=== PATIENT | female | born 1985 | race Two or more races ===

== ENCOUNTER 2020-01-02 12:25 | Emergency (ER) | payer OTHER ==
[~2020-01-02] VITALS: Ht 157.5 cm; Wt 56.7 kg
--- NOTE | 2020-01-02 12:33 | NUR ---
ED Nurse Note: PT walked in to ED for C/O right knee pain from S/P working out on Monday. Pt states that she has been supporting her gait with her left leg.
--- NOTE | 2020-01-02 12:52 | NUR ---
ED Nurse Note: x ray taken at bedside.
--- NOTE | 2020-01-02 13:32 | Emergency Room Report ---
History of Present Illness General Chief Complaint: Lower Extremity Injury Source: Patient Present Illness HPI 34-year-old female presents to the emergency department complaining of 6 out of 10 severity pain acute onset status post working out on Monday evening. Patient reports she is unable to bear weight as she has excruciating pain anteriorly on the right knee. Patient denies appreciable trauma or fall. She reports her symptoms are progressive the next few days. She states she has been attempting to rest her leg at home with no relief. She took Advil one time which provided minimal relief. Patient denies previous injury to this extremity she denies bruising, swelling, warmth, erythema or open wounds. Patient reports pain is exacerbated upon walking as well. Patient denies feeling of instability of the joint. She denies fevers or chills. Allergies: Coded Allergies: No Known Allergies (Unverified , 01/02/20) Patient History Past Medical History: see triage record Past Surgical History: none Pertinent Family History: none Last Menstrual Period: 12/28/2019 Now: No Reviewed Nursing Documentation: PMH: Agreed; PSxH: Agreed Nursing Documentation-PMH Past Medical History: No Stated History Review of Systems All Other Systems: negative except mentioned in HPI Physical Exam Vital Signs Date Time Temp Pulse Resp B/P (MAP) Pulse Ox O2 Delivery O2 Flow Rate FiO2 01/02/20 12:27 98.2 104 16 111/60 (77) 97 Room Air Sp02 EP Interpretation: reviewed, normal General Appearance: no apparent distress, alert, GCS 15, non-toxic Head: normocephalic, atraumatic Eyes: bilateral eye normal inspection, bilateral eye PERRL ENT: hearing grossly normal, normal voice Neck: full range of motion Respiratory: lungs clear, normal breath sounds, speaking full sentences Cardiovascular #1: regular rate, rhythm Cardiovascular #2: 2+ dorsalis pedis (R) - post. tib Musculoskeletal: back normal, normal range of motion, gait/station normal, tender - TTP to The anterior Right knee , no obvious swelling, echymosis, or deformity noted. there is no increased laxity to a valgus or varus stress. anterior and posterior drawer sign is negative. Neurologic: alert, motor strength/tone normal, oriented x3, sensory intact, responsive, speech normal Psychiatric: judgement/insight normal Skin: normal color, normal inspection Medical Decision Making PA Attestation Dr. Bravo is my supervising Physician whom patient management has been discussed with. Diagnostic Impression: Primary Impression: Right knee sprain Qualified Codes: S83.91XA - Sprain of unspecified site of right knee, initial encounter ER Course 34-year-old female presents to the emergency department complaining of 6 out of 10 severity pain acute onset status post working out on Monday evening. Patient reports she is unable to bear weight as she has excruciating pain anteriorly on the right knee. Patient denies appreciable trauma or fall. She reports her symptoms are progressive the next few days. She states she has been attempting to rest her leg at home with no relief. She took Advil one time which provided minimal relief. Patient denies previous injury to this extremity she denies bruising, swelling, warmth, erythema or open wounds. Patient reports pain is exacerbated upon walking as well. Patient denies feeling of instability of the joint. She denies fevers or chills. Ddx considered but are not limited to Fracture, dislocation, contusion, Septic Joint, Gout, meniscal injury, Sprain/Strain/Spasm Vital signs: are WNL, pt. is afebrile H&PE are most consistent with knee strain/ overuse. ORDERS: X-ray Right knee complete 3 view - negative for fx, Dislocation, or significant soft tissue injury ED INTERVENTIONS: --Patient is provided with crutches and instructed on their use DISCHARGE: At this time pt. is stable for d/c to home. Will provide printed patient care instructions, and any necessary prescriptions. Care plan and follow up instructions have been discussed with the patient prior to discharge. Other X-Ray Diagnostic Results Other X-Ray Diagnostic Results : X-Ray ordered: Right Knee # of Views/Limited Vs Complete: 3 View Indication: Pain EP Interpretation: Yes PA Xray: Interpretation reviewed, by supervising MD, and agrees with findings. Interpretation: no dislocation, no soft tissue swelling, no fractures Impression: No acute disease Electronically Signed by: Sosa De Guzman PA-C Last Vital Signs Date Time Temp Pulse Resp B/P (MAP) Pulse Ox O2 Delivery O2 Flow Rate FiO2 01/02/20 12:27 98.2 104 16 111/60 (77) 97 Room Air Disposition: HOME, SELF-CARE Condition: Stable Scripts Ibuprofen* (MOTRIN*) 600 Mg Tablet 600 MG ORAL THREE TIMES A DAY, #30 TAB 0 Refills Prov: Sosa De Guzman 01/02/20 Referrals: [facility],REFERRING (PCP) Departure Forms: Return to Work Return to Work Date: Jan 06, 2020 Work Restrictions: No Heavy Lifting Other Restrictions: light duty. May return Sooner if Symptoms have resolved. Return to Full Activity: Jan 09, 2020 Patient Instructions: Knee Sprain Additional Instructions: Take medications as directed. Follow up with an [facility] [employer] IN[employer]CTOR in 3-5 days, even if your symptoms have resolved. If symptoms persist MRI may be required at the discretion of your PCP or Ortho Specialist. --Please review list of primary care clinics, if you do not already have a primary care provider who can give you an Orthopedic Referral. Return sooner to ED if new symptoms occur, or current symptoms become worse. - Please note that this Emergency Department Report was dictated using [employer]ob[employer] sawyer technology software, occasionally this can lead to erroneous entry secondary to interpretation by the dictation equipment. Sosa De Guzman Jan 02, 2020 13:32
[2020-01-02] MEDS ORDERED: IBUPROFEN600 MG ORAL (13:33)
--- NOTE | 2020-01-02 13:33 | Diagnostic Imaging Report ---
Indication: Right knee Pain 3 views of the right knee were obtained. Findings: No acute fracture, malalignment, or joint effusion are identified. Impression: Negative for acute findings.
[2020-01-02 13:43] VITALS: BP 116/62
--- NOTE | 2020-01-02 13:43 | NUR ---
ER DISCHARGE NOTE: Patient is cleared to be discharged per ERMD, pt is aox4, on room air, with stable vital signs as documented. pt was given dc and prescription instructions and was able to verbalize understanding. pt id band removed. pt is able to ambulate with steady gait with crutches. Pt educated on how to use crutches. pt took all belongings.
== END 2020-01-02 13:43 | disposition home or self-care (01) ==
LOC: EMR 13:01
DX: S83.91XA Sprain of unspecified site of right knee, initial encounter (principal); X50.9XXA Other and unspecified overexertion or strenuous movements or postures, initial encounter; Y92.9 Unspecified place or not applicable
CPT/HCPCS: 73562; Z7502; 99283

== ENCOUNTER 2020-01-16 13:26 | Emergency (ER) | payer OTHER ==
[~2020-01-16] VITALS: Ht 157.5 cm; Wt 59.0 kg
[~2020-01-16 13:26] MED LIST: IBUPROFEN600 MG ORAL
[2020-01-16 13:28] VITALS: BP 116/79
--- NOTE | 2020-01-16 13:36 | Emergency Room Report ---
History of Present Illness General Chief Complaint: Flu Like Symptoms Source: Patient Present Illness HPI 34-year-old female presents to the emergency department complaining of persistent cough with some chest congestion that is worse at night-time x2 weeks. She denies pain. Patient reports she was diagnosed by her doctor with bronchitis and was told to take Mucinex. Patient was also given albuterol inhaler. Patient states that her symptoms have not improved. Patient denies progression of her symptoms. She denies fevers or chills. She denies sore throat. Patient reports at initial onset she did have some rhinorrhea and nasal congestion but that has resolved at this time. She denies dyspnea, shortness of breath, bluish colored lips, altered mental status, increase in fatigue or inability to be aroused. Denies recent travel. Denies contact with persons who have tested positive for or are under investigation/quarantine for COVID-19. She denies hx of GERD. She denies pain at this time. COVID-19 risk:Contact w/high r: No COVID-19 risk:Travel to affect: No Has patient experienced suazo: No Coronavirus symptoms experienc: Cough Allergies: Coded Allergies: No Known Allergies (Unverified , 01/02/20) Patient History Past Medical History: see triage record Past Surgical History: none Pertinent Family History: none Now: No Immunizations: UTD Reviewed Nursing Documentation: PMH: Agreed; PSxH: Agreed Nursing Documentation-PMH Past Medical History: No Stated History Review of Systems All Other Systems: negative except mentioned in HPI Physical Exam Vital Signs Date Time Temp Pulse Resp B/P (MAP) Pulse Ox O2 Delivery O2 Flow Rate FiO2 01/16/20 13:24 98.8 88 17 116/79 (91) 96 Room Air Sp02 EP Interpretation: reviewed, normal General Appearance: no apparent distress, alert, GCS 15, non-toxic Head: normocephalic, atraumatic Eyes: bilateral eye normal inspection, bilateral eye PERRL ENT: hearing grossly normal, normal pharynx, normal voice, TMs + canals normal , uvula midline Neck: full range of motion Respiratory: chest non-tender, lungs clear, normal breath sounds, no respiratory distress, no accessory muscle use, no wheezing, speaking full sentences Cardiovascular #1: regular rate, rhythm Musculoskeletal: normal range of motion, gait/station normal, non-tender Neurologic: alert, motor strength/tone normal, oriented x3, sensory intact, responsive, speech normal Psychiatric: judgement/insight normal Skin: normal color, normal inspection Lymphatic: no adenopathy Medical Decision Making PA Attestation Dr. Pedersen Is my supervising Physician whom patient management has been discussed with. Diagnostic Impression: Primary Impression: Persistent cough Additional Impression: Upper respiratory infection, viral ER Course 34-year-old female presents to the emergency department complaining of persistent cough with some chest congestion that is worse at nighttime x2 weeks. Patient reports she was diagnosed by her doctor with bronchitis and was told to take Mucinex. Patient was also given albuterol inhaler. Patient states that her symptoms have not improved. Patient denies progression of her symptoms. She denies fevers or chills. She denies sore throat. Patient reports at initial onset she did have some rhinorrhea and nasal congestion but that has resolved at this time. She denies dyspnea, shortness of breath, bluish colored lips, altered mental status, increase in fatigue or inability to be aroused. Denies recent travel. Denies contact with persons who have tested positive for or are under investigation/quarantine for COVID-19. She denies hx of GERD. She denies pain at this time. Ddx considered but are not limited to URI, pneumonia, PE, strep pharyngitis, meningitis, COVID-19 Vital signs: Pt.is afebrile VS are WNL H&PE are most consistent with bronchitis- mild, not currently displaying wheezing or SOB, intermittent dry cough is present. The patient is nontoxic in appearance in no acute distress not exhibiting signs and symptoms indicating respiratory distress. ORDERS: none required at this time, the diagnosis is clinical ED INTERVENTIONS: None required at this time. D/w pt. and the importance of minimum 2 week self-quarantine due to exhibiting s/sx that are c/w COVID-19 during a local ongoing outbreak. DISCHARGE: At this time pt. is stable for d/c to home. Will provide printed patient care instructions, and any necessary prescriptions. Care plan and follow up instructions have been discussed with the patient prior to discharge. Last Vital Signs Date Time Temp Pulse Resp B/P (MAP) Pulse Ox O2 Delivery O2 Flow Rate FiO2 01/16/20 13:28 98.8 88 17 116/79 96 Room Air Disposition: HOME, SELF-CARE Condition: Stable Scripts D-Methorphan Hb/Prometh Hcl* (PROMETHAZINE-DM SYRUP*) 118 Ml Syrup 5 ML ORAL Q6H PRN for For Cough, #120 ML 0 Refills Prov: Sosa De Guzman 01/16/20 Departure Forms: Return to Work Return to Work Date: Jan 30, 2020 Work Restrictions: None Other Restrictions: Self Quarantine x 2 weeks/ until 01/30/2020. Return to Full Activity: Jan 30, 2020 Patient Instructions: Cough, Adult, [id number], Medical Screening Exam Additional Instructions: DUE TO YOUR EXPOSURE TO THE COVID-19 INFECTION OR DISPLAYING COVID-19 SYMPTOMS: YOU ARE TO SELF-QUARANTINE AT HOME FOR THE NEXT 14 DAYS EVEN IF YOU ARE NOT HAVING ANY SYMPTOMS. *!* QUARANTINE IS TO BE TAKEN SERIOUSLY, ALTHOUGH YOUR SYMPTOMS MAY BE MILD OR RESOLVE IN A FEW DAYS. YOUR ADHERENCE TO SELF-QUARANTINE IS IMPORTANT FOR OTHERS IN THE COMMUNITY WHO MAY COME IN CONTACT WITH SOMETHING YOU TOUCH OR IN CLOSE DISTANCE OF YOU. ------ DO NOT EXPOSE ANOTHER PERSON IN THE COMMUNITY WHOM MAY HAVE A WEAKER IMMUNE SYSTEM THAN YOU, THIS VIRUS CAN CAUSE LIFE-THREATENING COMPLICATIONS ---- - ----- PLEASE NOTIFY ALL CLOSE CONTACTS IN THE LAST 2 WEEKS THAT THEY SHOULD STAY SELF-QUARANTINED INSIDE WELL UNTIL YOU RECEIVE YOUR RESULTS. CONTACT YOUR HEALTHCARE PROVIDER FOR AT HOME TREATMENT AND MONITORING IF YOU BEGIN EXPERIENCING ANY SYMPTOMS. ---- IF YOUR SYMPTOMS ARE VERY SEVERE OR YOU DEVELOP SHORTNESS OF BREATH/ DIFFICULTY BREATHING, FEVERS THAT DON'T RESPOND TO TYLENOL/MOTRIN THEN RETURN TO THE EMERGENCY DEPARTMENT FOR ADMISSION CONSIDERATION. * PLEASE REVIEW PROVIDED COVID-19 SELF QUARANTINE INFORMATION DOCUMENT THAT IS PROVIDED TO YOU * AT THIS PRESENT TIME YOUR VITAL SIGNS ARE STABLE AND YOU ARE STABLE TO BE TREATED AN OUTPATIENT AT HOME. Take medications as directed. Follow up with a Primary Care Provider in 3-5 days, even if your symptoms have resolved. TELEPHONE CONTACT Unless directed to physically show up in person by the Primary Care provider or their staff. --Please review list of primary care clinics, if you do not already have a primary care provider Return sooner to ED if new symptoms occur, or current symptoms become worse. - Please note that this Emergency Department Report was dictated using [employer] psychology chair technology software, occasionally this can lead to erroneous entry secondary to interpretation by the dictation equipment. Sosa De Guzman Jan 16, 2020 13:36
[2020-01-16] MEDS ORDERED: PROMETHAZINE-D118 ML ORAL (14:35)
[2020-01-16 14:51] VITALS: BP 116/79
== END 2020-01-16 14:51 | disposition home or self-care (01) ==
LOC: EMR 14:23
DX: J06.9 Acute upper respiratory infection, unspecified (principal); R05 Cough
CPT/HCPCS: 99282